=== PATIENT | female | born 1975 | race Two or more races ===

== ENCOUNTER 2024-02-24 16:24 | Emergency (ER) | payer OTHER ==
[~2024-02-24] VITALS: Ht 160 cm; Wt 54.5 kg
[2024-02-24 16:27] VITALS: BP 126/79; PULSE 70; RESP 16; O2SAT 96
[2024-02-24 18:59] LABS: Urine Bacteria FEW /hpf (None Seen); Urine Blood 3+ /uL (Negative); Urine Clarity Ex.Turbid (Clear); Urine Color Brown (Yellow); Urine Mucus FEW (None Seen); Urine Protein, UAD 1+ (Negative); Urine Specific Gravity 1.022 (1.001-1.035); Urine Urobilinogen Normal (Negative); Urine WBC 39 /hpf (0 - 5); Urine pH 5.5 (5.0-9.0)
[2024-02-24] MEDS ORDERED: NITR-87 PO (19:09)
[2024-02-24] MEDS ORDERED: cefTRIAXone SOD 1,000 MG VL IM ONE (19:15)
== END 2024-02-24 22:51 | disposition home or self-care (01) ==
LOC: EDBD 16:24 → ER 16:24
DX: N39.0 Urinary tract infection, site not specified (principal)
CPT/HCPCS: 81001